=== PATIENT | male | born 1980 ===

== ENCOUNTER 2021-05-03 16:44 | Outpatient (CLI) | payer BC, SELFPAY ==
[2021-05-03 18:13] LABS: SARS-CoV-2 RNA PCR Negative (Negative)
== END 2021-05-03 16:45 | disposition home or self-care (01) ==
PROVIDERS: PCP Family Medicine; Visit Provider Family Medicine
DX: Z20.822 Contact with and (suspected) exposure to COVID-19 (principal)
CPT/HCPCS: C9803; U0003; U0005

== ENCOUNTER 2022-06-03 13:18 | Outpatient (CLI) | payer BC, SELFPAY ==
[2022-06-03 13:53] LABS: Creatinine Urine 170.53 mg/dL (40-278); MALB Creatinine Ratio 33.3 mg/g (0-30); Microalbumin Urine Random 56.8 mg/L
[2022-06-03 14:04] LABS: Hemoglobin A1C 8.2 % (<5.7)
[2022-06-03 14:07] LABS: Alanine Aminotransferase 59 U/L (16-63); Albumin Level 4.1 g/dL (3.4-5.0); Alkaline Phosphatase 80 U/L (46-116); Anion Gap 8 mmol/L (8-16); Aspartate Amino Transferase 21 U/L (15-37); Bilirubin,Total 0.3 mg/dL (0.00-1.00); Blood Urea Nitrogen 18 mg/dL (7-18); Carbon Dioxide 30 mmol/L (21-32); Chloride 104 mmol/L (98-108); Cholesterol 214 mg/dL (0-200); Estimated Glomerular Filt Rate > 60; Glucose 199 mg/dL (70-99); HDL Direct 31 mg/dL (40-60); LDL Cholesterol Calculated 130 mg/dL (<130); Osmolality Calculated 301 mOsm/kg (285-295); Potassium 4.3 mmol/L (3.5-5.1); Sodium 142 mmol/L (136-145); Total Protein 7.3 g/dL (6.4-8.2); Triglycerides 266 mg/dL (0-150); Uric Acid 7.8 mg/dL (3.5-7.2)
[2022-06-07 15:18] LABS: Testosterone Total 186 ng/dL (250-1100)
== END 2022-06-03 13:19 | disposition home or self-care (01) ==
LOC: CHSLAB 13:21
PROVIDERS: PCP Family Medicine; Visit Provider Family Medicine
DX: M10.9 Gout, unspecified (principal); E11.9 Type 2 diabetes mellitus without complications
CPT/HCPCS: 36415; 80053; 80061; 82043; 83036; 84402; 84403; 84550

== ENCOUNTER 2023-10-07 16:42 | Outpatient (CLI) | payer OTHER, SELFPAY ==
[2023-10-07 17:05] LABS: Basophils Absolute Auto 0.04 K/mm3 (0.00-0.10); Basophils Percent Auto 0.5 % (0.0-1.0); Eosinophils Absolute Auto 0.21 K/mm3 (0.02-0.50); Eosinophils Percent Auto 2.6 % (1.0-6.0); Hematocrit 44.8 % (40.0-54.0); Hemoglobin 14.9 g/dL (14.0-18.0); Immature Granulocyte Absolute 0.03 K/mm3 (0.00-0.00); Immature Granulocyte Percent A 0.4 % (0.0-0.0); Lymphocytes Percent Auto 33.8 % (18.0-42.0); Mean Corpuscular HGB Conc 33.3 g/dL (32-36); Mean Corpuscular Hemoglobin 28.2 pg (27.0-31.0); Mean Corpuscular Volume 84.7 fL (78.0-102.0); Mean Platelet Volume 10.7 fl (8.7-11.0); Monocytes Absolute Auto 0.84 K/mm3 (0.10-0.90); Monocytes Percent Auto 10.5 % (2.0-11.0); Neutrophils Absolute Auto 4.17 K/mm3 (1.70-7.20); Neutrophils Percent Auto 52.2 % (50.0-70.0); Platelet Count Result 212 K/mm3 (150-420); Red Blood Count 5.29 M/mm3 (4.70-6.10)
[2023-10-07 17:15] LABS: Creatinine Urine 52.11 mg/dL (40-278); MALB Creatinine Ratio 24.9 mg/g (0-30); Microalbumin Urine Random < 13.0 mg/L
[2023-10-07 17:18] LABS: Hemoglobin A1C 11.6 % (<5.7)
[2023-10-07 17:40] LABS: Alanine Aminotransferase 29 U/L (16-63); Alkaline Phosphatase 93 U/L (46-116); Anion Gap 8 mmol/L (4-12); Bilirubin,Total 0.4 mg/dL (0.00-1.00); Blood Urea Nitrogen 20 mg/dL (7-18); Calcium 8.9 mg/dL (8.5-10.1); Carbon Dioxide 31 mmol/L (21-32); Chloride 97 mmol/L (98-108); Cholesterol 214 mg/dL (0-200); Estimated Glomerular Filt Rate > 60; Glucose 304 mg/dL (70-99); HDL Direct 27 mg/dL (40-60); Osmolality Calculated 295 mOsm/kg (285-295); Potassium 4.3 mmol/L (3.5-5.1); Sodium 136 mmol/L (136-145); Thyroid Stimulating Hormone 2.72 uIU/mL (0.36-3.74); Total Protein 7.2 g/dL (6.4-8.2); Uric Acid 5.4 mg/dL (3.5-7.2)
[2023-10-07 17:43] LABS: LDL Cholesterol Calculated 46 mg/dL (<130); Triglycerides 706 mg/dL (0-150)
[2023-10-07 17:44] LABS: LDL Cholesterol Direct 93 mg/dL (0-130)
[2023-10-07 17:51] LABS: Aspartate Amino Transferase 19 U/L (15-37)
[2023-10-14 11:32] LABS: Testosterone Free 46.8 pg/mL (35.0-155.0); Testosterone Total 209 ng/dL (250-1100)
== END 2023-10-07 16:43 | disposition home or self-care (01) ==
PROVIDERS: PCP Family Medicine; Visit Provider Nurse Practitioner Family
DX: Z00.00 Encounter for general adult medical examination without abnormal findings (principal); E11.9 Type 2 diabetes mellitus without complications; M10.9 Gout, unspecified; R37 Sexual dysfunction, unspecified
CPT/HCPCS: 36415; 80053; 80061; 82043; 83036; 83721; 84402; 84403; 84443; 84550; 85025

== ENCOUNTER 2025-02-25 08:37 | Outpatient (CLI) | payer OTHER, SELFPAY ==
[2025-02-25 08:54] LABS: Hematocrit 43.7 % (40.0-54.0); Hemoglobin 14.4 g/dL (14.0-18.0); Immature Granulocyte Percent A 0.2 % (0.0-0.0); Lymphocytes Absolute Auto 2.04 K/mm3 (1.10-4.50); Mean Corpuscular HGB Conc 33.0 g/dL (32-36); Mean Corpuscular Hemoglobin 28.9 pg (27.0-31.0); Mean Corpuscular Volume 87.8 fL (78.0-102.0); Nucleated Red Blood Cells Absolute Auto 0.00 K/mm3 (0.00-0.00); Nucleated Red Blood Cells Perc 0.0 % (0-0.0); Platelet Count Result 242 K/mm3 (150-420); Red Blood Count 4.98 M/mm3 (4.70-6.10); White Blood Count 6.4 K/mm3 (4.8-10.8)
[2025-02-25 09:08] LABS: MALB Creatinine Ratio 16.9 mg/g (0-30)
[2025-02-25 09:13] LABS: Hemoglobin A1C 8.1 % (<5.7)
[2025-02-25 09:33] LABS: Alanine Aminotransferase 39 U/L (6-50); Albumin Level 4.7 g/dL (3.5-5.1); Alkaline Phosphatase 56 U/L (38-126); Anion Gap 9 mmol/L (4-12); Aspartate Amino Transferase 33 U/L (17-59); Bilirubin,Total 0.8 mg/dL (0.2-1.3); Blood Urea Nitrogen 17 mg/dL (9-20); Calcium 10.0 mg/dL (8.4-10.2); Carbon Dioxide 27 mmol/L (22-30); Chloride 103 mmol/L (98-107); Cholesterol 208 mg/dL (0-200); Estimated Glomerular Filt Rate > 60; Glucose 148 mg/dL (65-110); HDL Direct 35 mg/dL; Osmolality Calculated 292 mOsm/kg (285-295); Potassium 4.6 mmol/L (3.4-5.0); Sodium 139 mmol/L (137-145); Total Protein 7.3 g/dL (6.3-8.2); Triglycerides 81 mg/dL (<150); Uric Acid 6.5 mg/dL (3.5-8.5)
[2025-02-25 10:03] LABS: Thyroid Stimulating Hormone Reflex 1.700 uIU/mL (0.465-4.68)
[2025-03-04 10:08] LABS: Free Testosterone (Direct) 11.6 pg/mL (6.8-21.5)
== END 2025-02-25 08:38 | disposition home or self-care (01) ==
LOC: CHSLAB 08:39
PROVIDERS: PCP Nurse Practitioner Family; Visit Provider Nurse Practitioner Family
DX: Z00.00 Encounter for general adult medical examination without abnormal findings (principal); R79.89 Other specified abnormal findings of blood chemistry; M10.9 Gout, unspecified; E11.9 Type 2 diabetes mellitus without complications
CPT/HCPCS: 36415; 80053; 80061; 82043; 83036; 84402; 84403; 84443; 84550; 85025